=== PATIENT | female | born 1960 ===

== ENCOUNTER 2021-07-01 00:04 | Emergency (ER) | payer BC ==
[2021-07-01] MEDS ORDERED: DIPHENHYDRAMINE 25 MG TAB/CAP ONE (01:31)
[2021-07-01] MEDS ORDERED: ROPINIROLE HCL 0.25 MG TAB ONE (01:52)
--- NOTE | 2021-07-01 02:32 | ER ---
Nurse's Notes [facility] Name: Negin Lainez Age: 61 yrs Sex: Female : 1960 Arrival Date: 07/01/2021 Time: 00:07 Bed 15 Private MD: Diagnosis: Restless legs syndrome;Medication Dispense Error: Pharmacy Presentation: 07/01 00:12 Chief complaint: Patient states: "I have severe restless leg syndrome. I called the [facility] pharmacy Wednesday. I had enough medication to get me through today. I showed up today to get the bottle, and it aint my prescription. ". Coronavirus screen: Vaccine status: Patient reports being unvaccinated. Ebola Screen: Patient negative for fever greater than or equal to 101.5 degrees Fahrenheit, and additional compatible Ebola Virus Disease symptoms Patient denies exposure to infectious person. Patient denies travel to an Ebola-affected area in the 21 days before illness onset. Initial Sepsis Screen: Does the patient meet any 2 criteria? No. Patient's initial sepsis screen is negative. Does the patient have a suspected source of infection? No. Patient's initial sepsis screen is negative. Risk Assessment: Do you want to hurt yourself or someone else? Patient reports no desire to harm self or others. Onset of symptoms was July 01, 2021. 00:12 Method Of Arrival: Ambulatory tw5 00:12 Acuity: LOAN 3 tw5 Triage Assessment: 00:16 General: Appears uncomfortable, Behavior is anxious. Pain: Complains of pain in right tw5 leg and left leg Pain currently is 8 out of 10 on a pain scale. Historical: - PMHx: 00:16 restless leg syndrome; tw5 - Immunization history:: Flu vaccine is not up to date. - Social history:: Smoking status: Patient denies any tobacco usage or history of. Screenin:31 Abuse screen: Denies threats or abuse. Denies injuries from another. Nutritional ld1 screening: No deficits noted. Tuberculosis screening: No symptoms or risk factors identified. Fall Risk None identified. Assessment: 01:04 General: Appears in no apparent distress. comfortable, Behavior is calm, cooperative, ld1 appropriate for age. Pain: Denies pain. Neuro: Level of Consciousness is awake, alert, obeys commands, Oriented to person, place, time, situation. Cardiovascular: Capillary refill < 3 seconds Patient's skin is warm and dry. Respiratory: Airway is patent Respiratory effort is even, unlabored. GI: Abdomen is flat, non-distended. : No signs and/or symptoms were reported regarding the genitourinary system. EENT: No signs and/or symptoms were reported regarding the EENT system. Derm: No signs and/or symptoms reported regarding the dermatologic system. Musculoskeletal: No signs and/or symptoms reported regarding the musculoskeletal system. Vital Signs: 00:12 BP 132 / 71; Pulse 97; Resp 18; Temp 97.4(O); Pulse Ox 100% on R/A; Weight 78.93 kg; tw5 Height 5 ft. 0 in. (152.40 cm); Pain 8/10; 01:04 BP 109 / 96; Pulse 82; Resp 18; Pulse Ox 100% on R/A; ld1 02:48 BP 112 / 86; Pulse 81; Resp 17; Pulse Ox 100% on R/A; lg3 00:12 Body Mass Index 33.98 (78.93 kg, 152.40 cm) tw5 ED Course: 00:07 Patient arrived in ED. bp1 00:08 Jose Engle MD is Attending Physician. kdr 00:16 Triage completed. tw5 00:16 Arm band placed on. tw5 01:03 Karen Carranza, JH is Primary Nurse. ld1 01:31 Patient has correct armband on for positive identification. Placed in gown. Bed in low ld1 position. Call light in reach. Side rails up X2. dust collector attendant on. Pulse ox on. NIBP on. Door closed. Noise minimized. Warm blanket given. 01:31 No provider procedures requiring assistance completed. ld1 02:49 Patient did not have IV access during this emergency room visit. lg3 Administered Medications: 01:49 Drug: Benadryl (diphenhydrAMINE) 25 mg Route: PO; ld1 02:49 Follow up: Response: No adverse reaction lg3 01:52 Drug: rOPINIRole 0.5 mg Route: PO; ld1 02:49 Follow up: Response: No adverse reaction lg3 Medication: 01:31 VIS not applicable for this client. ld1 Outcome: 02:32 Discharge ordered by . kdr 02:49 Discharged to home ambulatory, with family. lg3 02:49 Condition: stable 02:49 Discharge instructions given to patient, Instructed on discharge instructions, Demonstrated understanding of instructions. 02:49 Patient left the ED. lg3 Signatures: Jose Engle MD MD [facility] Bette Mcginnis RN RN lg3 Anne-Marie Mast Lauren, RN RN ld1 Claudia Salguero [facility]
--- NOTE | 2021-07-01 02:32 | EDPHYS ---
Physician Documentation [facility] Name: Negin Lainez Age: 61 yrs Sex: Female : 1960 Arrival Date: 07/01/2021 Time: 00:07 Bed 15 Private MD: ED Physician Jose Engle HPI: 07/01 04:27 This 61 yrs old Female presents to ER via Ambulatory with complaints of Negative kdr reaction to medicine. 04:27 Patient presents to the ED complaining that her medications for restless leg are not kdr working tonight and making her feel worse. She states that she has a history of restless leg and was getting a new prescription today. The pills that she was given did not match the ones that she had been taking previously. Further the pills do not seem to have any effect on her restless leg but made her feel odd.. Onset: The symptoms/episode began/occurred acutely, just prior to arrival. Severity of symptoms: At their worst the symptoms were mild moderate just prior to arrival, in the emergency department the symptoms are unchanged. The patient has not experienced similar symptoms in the past. The patient has not recently seen a physician. . Historical: - PMHx: 00:16 restless leg syndrome; tw5 - Immunization history:: Flu vaccine is not up to date. - Social history:: Smoking status: Patient denies any tobacco usage or history of. ROS: 04:27 Constitutional: Negative for fever, chills, and weight loss, Eyes: Negative for injury, kdr pain, redness, and discharge, ENT: Negative for injury, pain, and discharge, Neck: Negative for injury, pain, and swelling, Cardiovascular: Negative for chest pain, palpitations, and edema, Respiratory: Negative for shortness of breath, cough, wheezing, and pleuritic chest pain, Abdomen/GI: Negative for abdominal pain, nausea, vomiting, diarrhea, and constipation, Back: Negative for injury and pain, : Negative for injury, bleeding, discharge, and swelling, MS/Extremity: Negative for injury and deformity, Skin: Negative for injury, rash, and discoloration, Psych: Negative for depression, anxiety, suicide ideation, homicidal ideation, and hallucinations, Allergy/Immunology: Negative for hives, rash, and allergies, Endocrine: Negative for neck swelling, polydipsia, polyuria, polyphagia, and marked weight changes, Hematologic/Lymphatic: Negative for swollen nodes, abnormal bleeding, and unusual bruising. 04:27 Neuro: Positive for Restless leg. Exam: 04:27 Constitutional: This is a well developed, well nourished patient who is awake, alert, kdr and in no acute distress. Head/Face: Normocephalic, atraumatic. Eyes: Pupils equal round and reactive to light, extra-ocular motions intact. Lids and lashes normal. Conjunctiva and sclera are non-icteric and not injected. Cornea within normal limits. Periorbital areas with no swelling, redness, or edema. Neck: Trachea midline, no thyromegaly or masses palpated, and no cervical lymphadenopathy. Supple, full range of motion without nuchal rigidity, or vertebral point tenderness. No Meningismus. Chest/axilla: Normal chest wall appearance and motion. Nontender with no deformity. No lesions are appreciated. Cardiovascular: Regular rate and rhythm with a normal S1 and S2. No gallops, murmurs, or rubs. Normal PMI, no JVD. No pulse deficits. Respiratory: Lungs have equal breath sounds bilaterally, clear to auscultation and percussion. No rales, rhonchi or wheezes noted. No increased work of breathing, no retractions or nasal flaring. Abdomen/GI: Soft, non-tender, with normal bowel sounds. No distension or tympany. No guarding or rebound. No evidence of tenderness throughout. Back: No spinal tenderness. No costovertebral tenderness. Full range of motion. Skin: Warm, dry with normal turgor. Normal color with no rashes, no lesions, and no evidence of cellulitis. MS/ Extremity: Pulses equal, no cyanosis. Neurovascular intact. Full, normal range of motion. Psych: Awake, alert, with orientation to person, place and time. Behavior, mood, and affect are within normal limits. 04:27 Neuro: Severe restless leg. Vital Signs: 00:12 BP 132 / 71; Pulse 97; Resp 18; Temp 97.4(O); Pulse Ox 100% on R/A; Weight 78.93 kg; tw5 Height 5 ft. 0 in. (152.40 cm); Pain 8/10; 01:04 BP 109 / 96; Pulse 82; Resp 18; Pulse Ox 100% on R/A; ld1 02:48 BP 112 / 86; Pulse 81; Resp 17; Pulse Ox 100% on R/A; lg3 00:12 Body Mass Index 33.98 (78.93 kg, 152.40 cm) tw5 MDM: 02:32 Patient medically screened. kdr 04:27 Data reviewed: vital signs, nurses notes. Counseling: I had a detailed discussion with kdr the patient and/or guardian regarding: the historical points, exam findings, and any diagnostic results supporting the discharge/admit diagnosis, the need for outpatient follow up. ED course: Evaluation of her medications, it was noted that she may given the wrong medicine. Most likely she had been receiving risperidone versus her restless leg medicine. She was given a dose of her restless leg She was happy with the care provided and the plan for discharge and follow-up. Administered Medications: 01:49 Drug: Benadryl (diphenhydrAMINE) 25 mg Route: PO; ld1 02:49 Follow up: Response: No adverse reaction lg3 01:52 Drug: rOPINIRole 0.5 mg Route: PO; ld1 02:49 Follow up: Response: No adverse reaction lg3 Disposition Summary: 07/01/21 02:32 Discharge Ordered Location: Home kdr Problem: new kdr Symptoms: have improved kdr Condition: Stable kdr Diagnosis - Restless legs syndrome kdr - Medication Dispense Error: Pharmacy kdr Followup: kdr - With: Private Physician - When: Today - Reason: If symptoms return, Further diagnostic work-up, Recheck today's complaints, Continuance of care, Re-evaluation by your physician Discharge Instructions: - Discharge Summary Sheet kdr - Restless Legs Syndrome kdr Forms: - Medication Reconciliation Form kdr - Thank You Letter kdr Signatures: Jose Engle MD MD kdr Karen Carranza RN RN ld1 Claudia Salguero tw5 Bette Mcginnis RN lg3
[2021-07-01 02:58] VITALS: TEMP 97.4; O2SAT 100
[2021-07-01 03:01] VITALS: BP 112/86
== END 2021-07-01 02:49 | disposition home or self-care (01) ==
LOC: ER 00:04
DX: G25.81 Restless legs syndrome (principal); T43.595A Adverse effect of other antipsychotics and neuroleptics, initial encounter
CPT/HCPCS: 99284